=== PATIENT | female | born 1970 | race Caucasian/White ===

== ENCOUNTER 2018-09-07 16:26 | Emergency (ER) | payer MEDICAID ==
[~2018-09-07] VITALS: Ht 162.6 cm; Wt 64.9 kg
[~2018-09-07 16:26] MED LIST: ALBU2.5V38 IH; ALBU8HFA4 INH; DIPH25CA83 PO
--- NOTE | 2018-09-07 16:37 | NUR ---
DR Sandoval at the bedside for MSE.
[2018-09-07 16:55] VITALS: BP 143/70
--- NOTE | 2018-09-07 16:55 | NUR ---
Patient discharged to home in stable conditon. Written and verbal after care instructions given. Patient verbalizes understanding of instructions.
== END 2018-09-07 16:56 | disposition home or self-care (01) ==
LOC: ER 16:28
DX: M54.42 Lumbago with sciatica, left side (principal); R42 Dizziness and giddiness; R20.2 Paresthesia of skin; J45.909 Unspecified asthma, uncomplicated; Z88.1 Allergy status to other antibiotic agents; Z79.899 Other long term (current) drug therapy
CPT/HCPCS: A4663

== ENCOUNTER 2018-10-14 20:26 | Emergency (ER) | payer MEDICAID ==
[~2018-10-14] VITALS: Ht 162.6 cm; Wt 68.0 kg
[2018-10-14] MEDS ORDERED: FAMOTIDINE 20 MG TABLET (20:41)
[2018-10-14] MEDS ORDERED: ACET-2605 PO (20:42)
--- NOTE | 2018-10-14 20:55 | NUR ---
Dr. Gracia at bedside for MSE.
[2018-10-14] MEDS ORDERED: ONDANSETRON IV *ER 4 MG/2 ML VIAL IV ONE (21:00)
[2018-10-14] MEDS ORDERED: HYDROCODONE/APAP 10-325 MG TABLET PO ONE (21:00)
[2018-10-14] MEDS ORDERED: ASPIRIN 81 MG TAB.CHEW PO ONE (21:00)
[2018-10-14] MEDS ORDERED: NITROGLYCERIN OINT 1 GM PACKET TP ONE ×2 (21:00→21:21)
[2018-10-14] MEDS ORDERED: LORAZEPAM 0.5 MG TABLET PO ONE (21:00)
[2018-10-14 21:18] LABS: BASOPHILS # (AUTO) 0.2 K/uL (0.0-8.0); BASOPHILS % (AUTO) 1.2 % (0.0-2.0); EOSINOPHILS % (AUTO) 0.3 % (0.0-7.0); HEMATOCRIT 38.1 % (31.2-41.9); HEMOGLOBIN 12.9 g/dL (10.9-14.3); LYMPHOCYTES # (AUTO) 2.4 K/uL (20.0-40.0); LYMPHOCYTES % (AUTO) 17.1 % (20.5-51.5); MEAN CORPUSCULAR HEMOGLOBIN 32.5 uug (24.7-32.8); MEAN CORPUSCULAR HGB CONC 34 g/dL (32.3-35.6); MEAN CORPUSCULAR VOLUME 95.9 fL (75.5-95.3); MONOCYTES # (AUTO) 0.8 K/uL (2.0-10.0); MONOCYTES % (AUTO) 5.3 % (0.0-11.0); NEUTROPHILS # (AUTO) 10.9 K/uL (1.8-8.9); NEUTROPHILS % (AUTO) 76.1 % (38.5-71.5); PLATELET COUNT (AUTO) 450 K/uL (179-408); RED BLOOD CELL COUNT(AUTO) 3.97 MIL/uL (3.63-4.92); WHITE BLOOD COUNT (AUTO) 14.4 K/uL (3.8-11.8)
[2018-10-14] MEDS ORDERED: ONDANSETRON 4 MG/2 ML VIAL ONE (21:19)
[2018-10-14] MEDS ORDERED: ASPIRIN 81 MG TAB.CHEW ONE (21:20)
[2018-10-14] MEDS ORDERED: LORAZEPAM 0.5 MG TABLET ONE (21:20)
[2018-10-14] MEDS ORDERED: HYDROCODONE/APAP 10-325 MG TABLET ONE (21:21)
[2018-10-14 21:25] LABS: CREATININE 0.9 mg/dL (0.6-1.3); POTASSIUM 3.8 mmol/L (3.5-5.1)
--- NOTE | 2018-10-14 21:33 | NUR ---
Ultrasound at bedside.
[2018-10-14 21:37] LABS: BAND % (MANUAL) 6 % (0-10); LYMPHOCYTES % (MANUAL) 17 % (20-40); MONOCYTES % (MANUAL) 4 % (2-10); NEUTROPHILS % (MANUAL) 73 % (42-75)
[2018-10-14 21:38] LABS: BILIRUBIN,DIRECT 0.1 mg/dL (0.0-0.2); BILIRUBIN,TOTAL 0.2 mg/dL (0.2-1.0); TOTAL PROTEIN, SERUM 7.7 g/dL (6.4-8.2)
[2018-10-14] MEDS ORDERED: SWABABLE VALVE TRANSFER SET EA MC ONE (21:46)
[2018-10-14] MEDS ORDERED: NORMAL SALINE FLUSH 10 ML DISP.SYRIN ONE (21:46)
[2018-10-14] MEDS ORDERED: IV NORMAL SALINE 250 ML IV ONE (21:46)
[2018-10-14] MEDS ORDERED: IOHEXOL 350 100 ML INFUS..BTL ONE (21:46)
--- NOTE | 2018-10-14 22:50 | NUR ---
Patient out of ER for CTA.
--- NOTE | 2018-10-14 23:15 | NUR ---
Pt back to ER from CT.
[2018-10-15] MEDS ORDERED: DEXAMETHASONE SOD PHOSPHATE 10 MG INJ ONE (00:57)
[2018-10-15] MEDS ORDERED: DEXAMETHASONE SOD PHOSPHATE 4 MG INJ IM ONE (01:00)
--- NOTE | 2018-10-15 01:02 | NUR ---
Patient discharged to home in stable conditon. Written and verbal after care instructions given. Patient verbalizes understanding of instructions. Patient ambulated out of ER with steady gait, no acute signs of distress, VSS, all belongings taken, IV site discontinued, patient provided with copies of labs and diagnostic procedures.
[2018-10-15 01:05] VITALS: BP 138/80
== END 2018-10-15 01:05 | disposition home or self-care (01) ==
LOC: ER 20:29
DX: R06.02 Shortness of breath (principal); R00.2 Palpitations; M79.661 Pain in right lower leg; J45.909 Unspecified asthma, uncomplicated; K21.9 Gastro-esophageal reflux disease without esophagitis; Z88.1 Allergy status to other antibiotic agents; Z79.899 Other long term (current) drug therapy
CPT/HCPCS: 36415 ×2; 71275; 80048; 80076; 83880; 84484 ×2; 85025; 85730; 93005; 93971; 96372; 96374; 99284; J1100; J2405; Q9967; 70030-TC; A4663; J3490; J7050

== ENCOUNTER 2018-12-13 07:52 | Emergency (ER) | payer BC, MEDICAID ==
[~2018-12-13] VITALS: Ht 160 cm; Wt 90.7 kg
[~2018-12-13 07:52] MED LIST changes: +ACET-2605 PO; +FAMOTIDINE 20 MG TABLET
--- NOTE | 2018-12-13 08:06 | NUR ---
patient was seen my . ELKIN, and follow up instructions given and explained to patient who states she understands all instructions.
[2018-12-13 08:09] VITALS: BP 148/89
== END 2018-12-13 08:09 | disposition home or self-care (01) ==
LOC: ER 07:52
DX: S46.222A Laceration of muscle, fascia and tendon of other parts of biceps, left arm, initial encounter (principal); J45.909 Unspecified asthma, uncomplicated; K21.9 Gastro-esophageal reflux disease without esophagitis; Z88.1 Allergy status to other antibiotic agents; Z79.899 Other long term (current) drug therapy; W19.XXXA Unspecified fall, initial encounter; Y93.89 Activity, other specified; Y92.89 Other specified places as the place of occurrence of the external cause; Y99.8 Other external cause status
CPT/HCPCS: A4663

== ENCOUNTER 2018-12-21 20:44 | Emergency (ER) | payer BC, MEDICAID ==
[~2018-12-21] VITALS: Ht 162.6 cm; Wt 63.5 kg
[2018-12-21] MEDS ORDERED: PREDNISONE 10 MG TABLET (20:56)
[2018-12-21] MEDS ORDERED: IBUP200C5 PO (20:57)
[2018-12-21] MEDS ORDERED: ASPI81TA31 PO (20:57)
--- NOTE | 2018-12-21 21:22 | NUR ---
dPatient discharged to home in stable conditon. Written and verbal after care instructions given. Patient verbalizes understanding of instructions. Ambulated from ER with stable gait. All belongings with patient.
[2018-12-21 21:23] VITALS: BP 141/87
== END 2018-12-21 21:25 | disposition home or self-care (01) ==
LOC: ER 20:44
DX: S51.012D Laceration without foreign body of left elbow, subsequent encounter (principal); J45.909 Unspecified asthma, uncomplicated; K21.9 Gastro-esophageal reflux disease without esophagitis; Z88.1 Allergy status to other antibiotic agents; Z79.82 Long term (current) use of aspirin; Z79.1 Long term (current) use of non-steroidal anti-inflammatories (NSAID); Z79.899 Other long term (current) drug therapy; X58.XXXD Exposure to other specified factors, subsequent encounter
CPT/HCPCS: A4663

== ENCOUNTER 2018-12-25 21:25 | Emergency (ER) | payer MEDICAID, BC ==
[~2018-12-25] VITALS: Ht 162.6 cm; Wt 63.5 kg
[~2018-12-25 21:25] MED LIST changes: +ASPI81TA31 PO; -FAMOTIDINE 20 MG TABLET; +IBUP200C5 PO; +PREDNISONE 10 MG TABLET
[2018-12-25] MEDS ORDERED: LIDOCAINE HCL 2% 20 ML VIAL TP ONE (22:15)
--- NOTE | 2018-12-25 22:22 | NUR ---
Patient discharged to home in stable conditon. Written and verbal after care instructions given. Patient verbalizes understanding of instructions.
== END 2018-12-25 22:22 | disposition home or self-care (01) ==
LOC: ER 21:26
DX: S51.012A Laceration without foreign body of left elbow, initial encounter (principal); J45.909 Unspecified asthma, uncomplicated; Z88.1 Allergy status to other antibiotic agents; Z79.82 Long term (current) use of aspirin; Z79.1 Long term (current) use of non-steroidal anti-inflammatories (NSAID); Z79.899 Other long term (current) drug therapy; X58.XXXA Exposure to other specified factors, initial encounter; Y93.89 Activity, other specified; Y92.89 Other specified places as the place of occurrence of the external cause; Y99.8 Other external cause status
CPT/HCPCS: A4663

== ENCOUNTER 2019-01-08 14:35 | Emergency (ER) | payer MEDICAID, OTHER ==
[~2019-01-08] VITALS: Ht 162.6 cm; Wt 68.0 kg
--- NOTE | 2019-01-08 15:34 | NUR ---
Patient discharged to home in stable conditon. Written and verbal after care instructions given. Patient verbalizes understanding of instructions.pt walks in steady gait.
== END 2019-01-08 15:41 | disposition home or self-care (01) ==
LOC: ER 14:35
DX: S41.112D Laceration without foreign body of left upper arm, subsequent encounter (principal); M54.5 Low back pain; J45.909 Unspecified asthma, uncomplicated; Z88.1 Allergy status to other antibiotic agents; Z79.82 Long term (current) use of aspirin; Z79.1 Long term (current) use of non-steroidal anti-inflammatories (NSAID); Z79.899 Other long term (current) drug therapy; X58.XXXD Exposure to other specified factors, subsequent encounter
CPT/HCPCS: A4663

== ENCOUNTER 2019-02-16 19:51 | Emergency (ER) | payer BC, OTHER ==
[~2019-02-16] VITALS: Ht 162.6 cm; Wt 70.3 kg
--- NOTE | 2019-02-16 20:10 | NUR ---
Patient ambulated with stable gait. Speech clear, speaks in complete sentences. A/Ox4. No neuro deficits. Patient came for nasal congestion worsening x3 days. Respiratory even and unlabored, no cough no sob. No cardiovascular distress, all pulses palpable. No Gi/ distress noted.
--- NOTE | 2019-02-16 20:30 | NUR ---
Patient discharged to home in stable conditon. Written and verbal after care instructions given. Patient verbalizes understanding of instructions. Patient ambulated with stable gait.
[2019-02-16 20:31] VITALS: BP 145/95
== END 2019-02-16 20:32 | disposition home or self-care (01) ==
LOC: ER 19:51
DX: J32.9 Chronic sinusitis, unspecified (principal); J45.909 Unspecified asthma, uncomplicated; I10 Essential (primary) hypertension; Z88.1 Allergy status to other antibiotic agents; Z79.82 Long term (current) use of aspirin; Z79.1 Long term (current) use of non-steroidal anti-inflammatories (NSAID); Z79.899 Other long term (current) drug therapy
CPT/HCPCS: A4663

== ENCOUNTER 2019-04-16 14:47 | Emergency (ER) | payer BC, OTHER ==
[~2019-04-16] VITALS: Ht 162.6 cm; Wt 70.3 kg
[~2019-04-16 14:47] MED LIST changes: -ALBU2.5V38 IH; -ALBU8HFA4 INH
--- NOTE | 2019-04-16 14:55 | NUR ---
Physician at bedside.
--- NOTE | 2019-04-16 15:04 | NUR ---
Patient given discharge instructions. Patient being discharged at this time.
[2019-04-16 15:05] VITALS: BP 158/99
== END 2019-04-16 15:05 | disposition home or self-care (01) ==
LOC: ER 14:53
DX: S51.012D Laceration without foreign body of left elbow, subsequent encounter (principal); M79.5 Residual foreign body in soft tissue; J45.909 Unspecified asthma, uncomplicated; Z88.1 Allergy status to other antibiotic agents; Z79.82 Long term (current) use of aspirin; Z79.1 Long term (current) use of non-steroidal anti-inflammatories (NSAID); Z79.899 Other long term (current) drug therapy; X58.XXXD Exposure to other specified factors, subsequent encounter
CPT/HCPCS: A4663

== ENCOUNTER 2019-06-08 01:15 | Emergency (ER) | payer BC, MEDICAID, OTHER ==
[~2019-06-08] VITALS: Ht 165.1 cm; Wt 68.0 kg
[2019-06-08] MEDS ORDERED: ONDANSETRON 4 MG/2 ML VIAL IV ONE (01:30)
[2019-06-08] MEDS ORDERED: IV NORMAL SALINE 1000 ML BAG IV ONE ×2 (01:30→02:15)
[2019-06-08] MEDS ORDERED: ONDANSETRON 4 MG/2 ML VIAL ONE (01:35)
--- NOTE | 2019-06-08 01:39 | NUR ---
Patient states she took 20 tabs of Tylenol 8 hours [employer]MS EXAMIN[employer]. She states she took the same about a feel ago as well. She denies SI/HI/AH/VH. Patient states she took this for pain management due to chronic back pain.
[2019-06-08 01:57] LABS: BASOPHILS % (AUTO) 0.3 % (0.0-2.0); EOSINOPHILS # (AUTO) 0.1 K/uL (0.0-0.7); EOSINOPHILS % (AUTO) 0.7 % (0.0-7.0); HEMATOCRIT 40.1 % (31.2-41.9); HEMOGLOBIN 13.2 g/dL (10.9-14.3); LYMPHOCYTES # (AUTO) 3.1 K/uL (20.0-40.0); LYMPHOCYTES % (AUTO) 28.4 % (20.5-51.5); MEAN CORPUSCULAR HEMOGLOBIN 30.7 uug (24.7-32.8); MEAN CORPUSCULAR HGB CONC 33 g/dL (32.3-35.6); MEAN CORPUSCULAR VOLUME 93.3 fL (75.5-95.3); MONOCYTES # (AUTO) 0.7 K/uL (2.0-10.0); MONOCYTES % (AUTO) 6.7 % (0.0-11.0); NEUTROPHILS # (AUTO) 6.9 K/uL (1.8-8.9); NEUTROPHILS % (AUTO) 63.9 % (38.5-71.5); PLATELET COUNT (AUTO) 413 K/uL (179-408); WHITE BLOOD COUNT (AUTO) 10.8 K/uL (3.8-11.8)
[2019-06-08 02:00] LABS: ACETAMINOPHEN 50.6 ug/mL (10-30); ALANINE AMINOTRANSFERASE 53 U/L (14-59); ALKALINE PHOSPHATASE 113 U/L (50-136); ASPARTATE AMINOTRANSFERASE 32 U/L (15-37); BILIRUBIN,DIRECT 0.1 mg/dL (0.0-0.2); BILIRUBIN,TOTAL 0.2 mg/dL (0.2-1.0); CARBON DIOXIDE 23 mmol/L (21-32); CHLORIDE 96 mmol/L (98-107); CREATININE 0.8 mg/dL (0.6-1.3); GLUCOSE 123 mg/dL (74-106); TOTAL PROTEIN, SERUM 7.2 g/dL (6.4-8.2); UREA NITROGEN, BLOOD 12 mg/dL (7-18)
[2019-06-08 02:06] LABS: POTASSIUM 2.8 mmol/L (3.5-5.1)
[2019-06-08] MEDS ORDERED: POTASSIUM CHLORIDE 20 MEQ TAB.PRT.SR PO ONE (02:15)
[2019-06-08] MEDS ORDERED: POTASSIUM CHLORIDE 20 MEQ TAB.PRT.SR ONE (02:15)
[2019-06-08] MEDS ORDERED: LORAZEPAM 2 MG/1 ML VIAL ONE (02:20)
[2019-06-08] MEDS ORDERED: LORAZEPAM 2 MG/1 ML VIAL IV ONE (02:30)
[2019-06-08 02:35] LABS: ETHANOL < 3 MG/DL (0-0)
--- NOTE | 2019-06-08 03:16 | NUR ---
Direct observation ongoin. Patient in bed, no acute distress noted. VSS
--- NOTE | 2019-06-08 04:23 | NUR ---
Patient in bed, no acute distress noted VSS
[2019-06-08 05:41] LABS: POTASSIUM 3.2 mmol/L (3.5-5.1)
[2019-06-08 05:42] LABS: BILIRUBIN,TOTAL 0.2 mg/dL (0.1-1.0); CREATININE 0.8 mg/dL (0.6-1.3)
[2019-06-08 05:43] LABS: ACETAMINOPHEN 8.8 ug/mL (10-30); TOTAL PROTEIN, SERUM 6.5 g/dL (6.4-8.2)
--- NOTE | 2019-06-08 05:53 | NUR ---
Patient discharged to home in stable conditon. Written and verbal after care instructions given. Patient verbalizes understanding of instructions. Ambulated from ER with stable gait. All belongings with patient. patient to be driven home by in private vehicle. Peripheral IV removed prior to d/c.
[2019-06-08 05:54] VITALS: BP 128/80
== END 2019-06-08 05:55 | disposition home or self-care (01) ==
LOC: ER 01:18
DX: T39.1X1A Poisoning by 4-Aminophenol derivatives, accidental (unintentional), initial encounter (principal); E87.6 Hypokalemia; J45.909 Unspecified asthma, uncomplicated; Z88.1 Allergy status to other antibiotic agents; Z79.82 Long term (current) use of aspirin; Z79.1 Long term (current) use of non-steroidal anti-inflammatories (NSAID); Z79.899 Other long term (current) drug therapy; Y92.89 Other specified places as the place of occurrence of the external cause
CPT/HCPCS: 36415; 80048; 80053; 80076; 83690; 85025; 96361; 96374; 96375; 99283; G0480 ×3; G0481; J2060; J2405; A4663; J7030

== ENCOUNTER 2019-07-29 16:57 | Emergency (ER) | payer MEDICAID, OTHER ==
[~2019-07-29] VITALS: Ht 162.6 cm; Wt 63.5 kg
[~2019-07-29 16:57] MED LIST changes: -PREDNISONE 10 MG TABLET; +PREDNISONE 10 MG TABLET PO
[2019-07-29] MEDS ORDERED: ALPR0.5T PO (17:19)
[2019-07-29] MEDS ORDERED: PANTOPRAZOLE SODIUM 40 MG TABLET.DR PO ONE ×2 (17:45)
[2019-07-29] MEDS ORDERED: ONDANSETRON ODT 4 MG TAB.RAPDIS SL ONE (17:45)
[2019-07-29] MEDS ORDERED: ONDANSETRON ODT 4 MG TAB.RAPDIS ONE (17:46)
--- NOTE | 2019-07-29 18:16 | NUR ---
PT WAS EVALUATED BY DR EL. PT WAS D/C'd TO HOME. D/C INSTRUCTIONS GIVEN TO THE PT.
[2019-07-29 18:18] VITALS: BP 135/71
== END 2019-07-29 18:19 | disposition home or self-care (01) ==
LOC: ER 17:11
DX: K29.60 Other gastritis without bleeding (principal); J45.909 Unspecified asthma, uncomplicated; Z88.1 Allergy status to other antibiotic agents; Z79.82 Long term (current) use of aspirin; Z79.899 Other long term (current) drug therapy
CPT/HCPCS: 74018; A4663; Q0162

== ENCOUNTER 2019-08-29 11:17 | Emergency (ER) | payer OTHER ==
[~2019-08-29] VITALS: Ht 162.6 cm; Wt 68.0 kg
[~2019-08-29 11:17] MED LIST changes: -ACET-2605 PO; +ALPR0.5T PO; -ASPI81TA31 PO
--- NOTE | 2019-08-29 11:24 | NUR ---
Dr Lemons at the bedside for MSE.
[2019-08-29] MEDS ORDERED: METOCLOPRAMIDE HCL 10 MG/2 ML VIAL ONE (11:39)
[2019-08-29] MEDS ORDERED: KETOROLAC TROMETHAMINE 15 MG INJ ONE (11:39)
[2019-08-29] MEDS ORDERED: IPRATROPIUM BROMIDE 0.5 MG/2.5 ML NEBU ONE (11:41)
[2019-08-29] MEDS ORDERED: ALBUTEROL SULFATE 2.5 MG/3 ML NEBU ONE (11:41)
[2019-08-29] MEDS ORDERED: METOCLOPRAMIDE HCL 10 MG/2 ML VIAL IM ONE (11:45)
[2019-08-29] MEDS ORDERED: KETOROLAC TROMETHAMINE 15 MG INJ IM ONE (11:45)
[2019-08-29] MEDS ORDERED: ALBUTEROL SULFATE 2.5 MG/3 ML NEBU NEB ONE (11:45)
[2019-08-29] MEDS ORDERED: IPRATROPIUM BROMIDE 0.5 MG/2.5 ML NEBU NEB ONE (11:45)
[2019-08-29 12:30] VITALS: BP 139/74
--- NOTE | 2019-08-29 12:31 | NUR ---
Patient discharged to home in stable conditon. Written and verbal after care instructions given. Patient verbalizes understanding of instructions.
== END 2019-08-29 12:31 | disposition home or self-care (01) ==
LOC: ER 11:17
DX: G43.909 Migraine, unspecified, not intractable, without status migrainosus (principal); J45.901 Unspecified asthma with (acute) exacerbation; Z88.1 Allergy status to other antibiotic agents; Z79.1 Long term (current) use of non-steroidal anti-inflammatories (NSAID); Z79.899 Other long term (current) drug therapy
CPT/HCPCS: 71045; 93005; 94640; 96372 ×2; 99283; J1885; J2765; A4663; J3590

== ENCOUNTER 2019-08-31 10:16 | Emergency (ER) | payer OTHER ==
[~2019-08-31] VITALS: Ht 162.6 cm; Wt 63.5 kg
[2019-08-31] MEDS ORDERED: ALBUTEROL SULFATE 2.5 MG/3 ML NEBU NEB ONE (10:30)
[2019-08-31] MEDS ORDERED: BENZONATATE 100 MG CAPSULE PO ONE (10:30)
[2019-08-31] MEDS ORDERED: BENZONATATE 100 MG CAPSULE ONE (10:35)
[2019-08-31] MEDS ORDERED: ALBUTEROL SULFATE 2.5 MG/3 ML NEBU ONE (10:38)
--- NOTE | 2019-08-31 11:05 | NUR ---
Pt states feeling better after breathing tx. No c/o chest wall pain.
[2019-08-31 11:18] VITALS: BP 133/69
--- NOTE | 2019-08-31 11:19 | NUR ---
Patient discharged to home in stable conditon. Written and verbal after care instructions given. Patient verbalizes understanding of instructions.
== END 2019-08-31 11:21 | disposition home or self-care (01) ==
LOC: ER 10:16
DX: J18.9 Pneumonia, unspecified organism (principal); J45.909 Unspecified asthma, uncomplicated; Z88.1 Allergy status to other antibiotic agents; Z79.1 Long term (current) use of non-steroidal anti-inflammatories (NSAID); Z79.899 Other long term (current) drug therapy
CPT/HCPCS: 71045; A4663

== ENCOUNTER 2019-09-03 13:55 | Emergency (ER) | payer OTHER ==
[~2019-09-03] VITALS: Ht 162.6 cm; Wt 63.5 kg
[2019-09-03] MEDS ORDERED: GUAIFENESIN/CODEINE 5 ML LIQUID UDC PO ONE (14:15)
[2019-09-03] MEDS ORDERED: GUAIFENESIN/CODEINE 5 ML LIQUID UDC ONE (14:22)
[2019-09-03 14:29] LABS: BASOPHILS # (AUTO) 0.1 K/uL (0.0-8.0); BASOPHILS % (AUTO) 0.6 % (0.0-2.0); EOSINOPHILS % (AUTO) 0.4 % (0.0-7.0); HEMATOCRIT 36.1 % (31.2-41.9); HEMOGLOBIN 11.9 g/dL (10.9-14.3); LYMPHOCYTES # (AUTO) 0.9 K/uL (20.0-40.0); LYMPHOCYTES % (AUTO) 10.7 % (20.5-51.5); MEAN CORPUSCULAR HEMOGLOBIN 28.9 uug (24.7-32.8); MEAN CORPUSCULAR HGB CONC 33 g/dL (32.3-35.6); MEAN CORPUSCULAR VOLUME 87.7 fL (75.5-95.3); MONOCYTES # (AUTO) 0.4 K/uL (2.0-10.0); MONOCYTES % (AUTO) 4.8 % (0.0-11.0); NEUTROPHILS # (AUTO) 6.9 K/uL (1.8-8.9); NEUTROPHILS % (AUTO) 83.5 % (38.5-71.5); PLATELET COUNT (AUTO) 603 K/uL (179-408); RED BLOOD CELL COUNT(AUTO) 4.11 MIL/uL (3.63-4.92); WHITE BLOOD COUNT (AUTO) 8.3 K/uL (3.8-11.8)
[2019-09-03] MEDS ORDERED: ALBUTEROL SULFATE 2.5 MG/3 ML NEBU NEB ONE (14:30)
[2019-09-03] MEDS ORDERED: ALBUTEROL SULFATE 2.5 MG/3 ML NEBU ONE (14:31)
[2019-09-03 14:44] LABS: BILIRUBIN,TOTAL 0.2 mg/dL (0.2-1.0); POTASSIUM 3.7 mmol/L (3.5-5.1); TOTAL PROTEIN, SERUM 7.7 g/dL (6.4-8.2)
[2019-09-03 14:47] LABS: CREATININE 0.8 mg/dL (0.6-1.3)
[2019-09-03] MEDS ORDERED: LEVO750T21 PO (15:15)
--- NOTE | 2019-09-03 15:30 | NUR ---
Patient discharged to home in stable conditon. Written and verbal after care instructions given. Patient verbalizes understanding of instructions.
== END 2019-09-03 15:44 | disposition home or self-care (01) ==
LOC: ER 13:55
DX: J45.909 Unspecified asthma, uncomplicated (principal); F41.8 Other specified anxiety disorders; G47.00 Insomnia, unspecified; Z88.1 Allergy status to other antibiotic agents; Z79.1 Long term (current) use of non-steroidal anti-inflammatories (NSAID); Z79.2 Long term (current) use of antibiotics; Z79.899 Other long term (current) drug therapy
CPT/HCPCS: 36415; 71045; 85025; A4663

== ENCOUNTER 2019-09-06 22:38 | Emergency (ER) | payer OTHER ==
[~2019-09-06] VITALS: Ht 162.6 cm; Wt 63.5 kg
[~2019-09-06 22:38] MED LIST changes: +LEVO750T21 PO
[2019-09-06] MEDS ORDERED: AZITHROMYCIN 250 MG TABLET PO ONE (23:00)
[2019-09-06] MEDS ORDERED: AZITHROMYCIN 250 MG TABLET ONE (23:06)
--- NOTE | 2019-09-06 23:09 | NUR ---
PT ABLE TO TOLERATE PO MEDS BP AT 145/89MMHG O2SAT AT 97% CURRENTLY DENIES PAIN Patient discharged to home in stable conditon. Written and verbal after care instructions given. Patient verbalizes understanding of instructions. AMBULATORY W/ STABLE GAIT ALL BELONGINGS W/ PT
[2019-09-06 23:11] VITALS: BP 145/89
== END 2019-09-06 23:12 | disposition home or self-care (01) ==
LOC: ER 22:41
DX: J18.9 Pneumonia, unspecified organism (principal); J45.909 Unspecified asthma, uncomplicated; Z88.1 Allergy status to other antibiotic agents; Z79.1 Long term (current) use of non-steroidal anti-inflammatories (NSAID); Z79.899 Other long term (current) drug therapy; Z79.2 Long term (current) use of antibiotics
CPT/HCPCS: A4663; Q0144

== ENCOUNTER 2019-09-10 20:41 | Emergency (ER) | payer OTHER ==
[~2019-09-10] VITALS: Ht 162.6 cm; Wt 63.5 kg
--- NOTE | 2019-09-10 20:55 | NUR ---
PATIENT ARRIVED AT THE ER WITH C/O COUGH/CP WITH BREATHING/LEFT RIB PAIN X 2 WKS. PATIENT AAOX4. NO CARDIOVASCULAR CONCERN. NO /GI CONCERN.
--- NOTE | 2019-09-10 21:02 | NUR ---
Dr. Webster on bedside for MSE.
--- NOTE | 2019-09-10 21:07 | NUR ---
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
--- NOTE | 2019-09-10 21:39 | NUR ---
Dr. Webster on bedside for MSE.
[2019-09-10 22:36] VITALS: BP 140/90
--- NOTE | 2019-09-10 22:37 | NUR ---
Patient discharged to home in stable conditon. Written and verbal after care instructions given. Patient verbalizes understanding of instructions. Patient ambulated out of the ER with steady gait. All belongings with patient.
== END 2019-09-10 22:38 | disposition home or self-care (01) ==
LOC: ER 20:42
DX: S29.011A Strain of muscle and tendon of front wall of thorax, initial encounter (principal); J45.909 Unspecified asthma, uncomplicated; Z88.1 Allergy status to other antibiotic agents; Z79.899 Other long term (current) drug therapy; Z79.1 Long term (current) use of non-steroidal anti-inflammatories (NSAID); Z79.2 Long term (current) use of antibiotics; X58.XXXA Exposure to other specified factors, initial encounter; Y93.89 Activity, other specified; Y92.89 Other specified places as the place of occurrence of the external cause; Y99.8 Other external cause status
CPT/HCPCS: 71101; A4663

== ENCOUNTER 2019-09-28 19:10 | Emergency (ER) | payer OTHER ==
[~2019-09-28] VITALS: Ht 162.6 cm; Wt 63.5 kg
--- NOTE | 2019-09-28 19:54 | NUR ---
Dr. Ospina at bedside for MSE.
[2019-09-28 20:25] LABS: BASOPHILS # (AUTO) 0.2 K/uL (0.0-8.0); BASOPHILS % (AUTO) 1.2 % (0.0-2.0); EOSINOPHILS # (AUTO) 0.2 K/uL (0.0-0.7); EOSINOPHILS % (AUTO) 1.3 % (0.0-7.0); HEMATOCRIT 37.2 % (31.2-41.9); HEMOGLOBIN 12.2 g/dL (10.9-14.3); LYMPHOCYTES # (AUTO) 3.1 K/uL (20.0-40.0); LYMPHOCYTES % (AUTO) 23.9 % (20.5-51.5); MEAN CORPUSCULAR HEMOGLOBIN 29.5 uug (24.7-32.8); MEAN CORPUSCULAR HGB CONC 33 g/dL (32.3-35.6); MEAN CORPUSCULAR VOLUME 89.9 fL (75.5-95.3); NEUTROPHILS # (AUTO) 8.5 K/uL (1.8-8.9); NEUTROPHILS % (AUTO) 65.6 % (38.5-71.5); PLATELET COUNT (AUTO) 352 K/uL (179-408); RED BLOOD CELL COUNT(AUTO) 4.14 MIL/uL (3.63-4.92); WHITE BLOOD COUNT (AUTO) 12.9 K/uL (3.8-11.8)
[2019-09-28 20:32] LABS: CREATININE 0.9 mg/dL (0.6-1.3); POTASSIUM 4.2 mmol/L (3.5-5.1)
[2019-09-28] MEDS ORDERED: SWABABLE VALVE TRANSFER SET EA MC ONE (21:17)
[2019-09-28] MEDS ORDERED: IV NORMAL SALINE 250 ML IV ONE (21:17)
[2019-09-28] MEDS ORDERED: IOHEXOL 350 100 ML INFUS..BTL ONE (21:17)
--- NOTE | 2019-09-28 21:50 | NUR ---
Pt out of ER for CT.
--- NOTE | 2019-09-28 22:07 | NUR ---
Pt back to ER from CT.
--- NOTE | 2019-09-28 23:05 | NUR ---
Pt's blood pressure high 180/103, made aware.
[2019-09-28] MEDS ORDERED: CLONIDINE HCL 0.1 MG TABLET ONE (23:07)
[2019-09-28] MEDS ORDERED: CLONIDINE HCL 0.1 MG TABLET PO ONE (23:15)
--- NOTE | 2019-09-28 23:34 | NUR ---
Patient discharged to home in stable conditon. Written and verbal after care instructions given. Patient verbalizes understanding of instructions. Pt ambulated out of ER with steady gait, VSS, no acute signs of distress, all belongings taken, IV site discontinued.
[2019-09-28 23:35] VITALS: BP 170/119
== END 2019-09-28 23:36 | disposition home or self-care (01) ==
LOC: ER 19:14
DX: S42.102A Fracture of unspecified part of scapula, left shoulder, initial encounter for closed fracture (principal); S22.32XA Fracture of one rib, left side, initial encounter for closed fracture; J20.9 Acute bronchitis, unspecified; R07.89 Other chest pain; J45.909 Unspecified asthma, uncomplicated; Z88.1 Allergy status to other antibiotic agents; Z79.899 Other long term (current) drug therapy; X58.XXXA Exposure to other specified factors, initial encounter; Y93.89 Activity, other specified; Y92.89 Other specified places as the place of occurrence of the external cause; Y99.8 Other external cause status
CPT/HCPCS: 36415; 71275; 80048; 84484; 85025; 85379; 93005; 99285; Q9967; 70030-TC; A4663; J7030; J7050

== ENCOUNTER 2020-05-02 22:11 | Emergency (ER) | payer SELFPAY ==
[~2020-05-02 22:11] MED LIST changes: -ALPR0.5T PO; -LEVO750T21 PO; -PREDNISONE 10 MG TABLET PO
== END 2020-05-02 22:30 | disposition left against medical advice (07) ==
LOC: ER 22:14
DX: Z75.3 Unavailability and inaccessibility of health-care facilities (principal)

== ENCOUNTER 2020-05-07 14:19 | Emergency (ER) | payer OTHER ==
[~2020-05-07] VITALS: Ht 162.6 cm; Wt 68.0 kg
[2020-05-07 15:13] LABS: BASOPHILS # (AUTO) 0.1 K/uL (0.0-8.0); BASOPHILS % (AUTO) 1.2 % (0.0-2.0); EOSINOPHILS # (AUTO) 0.4 K/uL (0.0-0.7); EOSINOPHILS % (AUTO) 5.3 % (0.0-7.0); HEMATOCRIT 38.1 % (31.2-41.9); HEMOGLOBIN 12.7 g/dL (10.9-14.3); LYMPHOCYTES # (AUTO) 2.1 K/uL (20.0-40.0); LYMPHOCYTES % (AUTO) 27.2 % (20.5-51.5); MEAN CORPUSCULAR HEMOGLOBIN 28.8 uug (24.7-32.8); MEAN CORPUSCULAR HGB CONC 33 g/dL (32.3-35.6); MEAN CORPUSCULAR VOLUME 86.2 fL (75.5-95.3); MONOCYTES # (AUTO) 0.5 K/uL (2.0-10.0); MONOCYTES % (AUTO) 6.5 % (0.0-11.0); NEUTROPHILS # (AUTO) 4.6 K/uL (1.8-8.9); NEUTROPHILS % (AUTO) 59.8 % (38.5-71.5); PLATELET COUNT (AUTO) 446 K/uL (179-408); RED BLOOD CELL COUNT(AUTO) 4.42 MIL/uL (3.63-4.92); WHITE BLOOD COUNT (AUTO) 7.8 K/uL (3.8-11.8)
[2020-05-07 15:18] LABS: CREATININE 0.8 mg/dL (0.6-1.3)
[2020-05-07 15:30] LABS: BILIRUBIN,DIRECT 0.1 mg/dL (0.0-0.2); BILIRUBIN,TOTAL 0.3 mg/dL (0.2-1.0); TOTAL PROTEIN, SERUM 7.6 g/dL (6.4-8.2)
--- NOTE | 2020-05-07 15:53 | NUR ---
Patient discharged to home in stable condition. Written and verbal after care instructions given. Patient verbalizes understanding of instructions. Stressed follow up or return to ER for worsening s/s.
== END 2020-05-07 15:54 | disposition home or self-care (01) ==
LOC: ER 14:19
DX: R06.00 Dyspnea, unspecified (principal); H60.93 Unspecified otitis externa, bilateral; Z87.01 Personal history of pneumonia (recurrent); Z88.0 Allergy status to penicillin; J45.909 Unspecified asthma, uncomplicated
CPT/HCPCS: 36415; 70030-TC; 71045; 85025; 93005; A4663

== ENCOUNTER 2020-11-15 21:37 | Emergency (ER) | payer OTHER ==
[~2020-11-15] VITALS: Ht 162.6 cm; Wt 70.3 kg
--- NOTE | 2020-11-15 21:54 | NUR ---
Dr Gracia at bedside for MSE.
--- NOTE | 2020-11-15 22:11 | NUR ---
Pt went to CT with tech, left in stable condition.
--- NOTE | 2020-11-15 23:05 | NUR ---
Patient discharged to home in stable condition. Written and verbal after care instructions given. Patient verbalizes understanding of instructions. Stressed follow up or return to ER for worsening s/s. Patient provided a copy of CT results, VSS, no acute signs of distress, all belongings taken, to be driven home by son via private vehicle.
[2020-11-15 23:06] VITALS: BP 132/89
== END 2020-11-15 23:06 | disposition home or self-care (01) ==
LOC: ER 21:38
DX: S00.83XA Contusion of other part of head, initial encounter (principal); W22.01XA Walked into wall, initial encounter; Y92.039 Unspecified place in apartment as the place of occurrence of the external cause; J45.909 Unspecified asthma, uncomplicated; Z87.01 Personal history of pneumonia (recurrent); R03.0 Elevated blood-pressure reading, without diagnosis of hypertension
CPT/HCPCS: 70450; A4663

== ENCOUNTER 2020-12-17 17:41 | Emergency (ER) | payer OTHER ==
[~2020-12-17] VITALS: Ht 162.6 cm; Wt 68.0 kg
--- NOTE | 2020-12-17 17:50 | NUR ---
Dr Glover at bedside for MSE.
[2020-12-17] MEDS ORDERED: HYDR-3980 PO (17:54)
[2020-12-17] MEDS: HYDROCODONE/APAP 10-325 MG TABLET PO ONE (18:02)
[2020-12-17] MEDS ORDERED: HYDROCODONE/APAP 10-325 MG TABLET ONE (18:03)
--- NOTE | 2020-12-17 18:25 | NUR ---
Patient applied with pedro luis wrap on R knee as ordered. Tolearted well. Pt cleared for DC. Written and verbal after care instructions given. Patient verbalizes understanding of instructions. Stressed follow up or return to ER for worsening s/s. Patient discharged to home in stable condition. Ambulated out of ED in steady gait,, with crutches.
[2020-12-17 18:26] VITALS: BP 140/70
== END 2020-12-17 18:10 | disposition home or self-care (01) ==
LOC: ER 17:42
DX: M25.561 Pain in right knee (principal); Z88.0 Allergy status to penicillin; M22.01 Recurrent dislocation of patella, right knee; J45.909 Unspecified asthma, uncomplicated; Z87.01 Personal history of pneumonia (recurrent)
CPT/HCPCS: A4663

== ENCOUNTER 2023-07-16 22:18 | Emergency (ER) | payer OTHER ==
[~2023-07-16] VITALS: Ht 162.6 cm; Wt 81.6 kg
[~2023-07-16 22:18] MED LIST changes: +HYDR-3980 PO
[2023-07-16 23:14] LABS: BASOPHILS # (AUTO) 0.1 K/UL (0.0-0.2); BASOPHILS % (AUTO) 1.2 % (0.0-2.0); EOSINOPHILS # (AUTO) 0.3 K/uL (0.0-0.7); EOSINOPHILS % (AUTO) 2.9 % (0.0-7.0); HEMATOCRIT 38.6 % (31.2-41.9); LYMPHOCYTES # (AUTO) 3.3 K/uL (0.8-4.8); LYMPHOCYTES % (AUTO) 30.5 % (20.5-51.5); MEAN CORPUSCULAR HEMOGLOBIN 29.9 uug (24.7-32.8); MEAN CORPUSCULAR HGB CONC 34 g/dL (32.3-35.6); MEAN CORPUSCULAR VOLUME 88.9 fL (75.5-95.3); MONOCYTES # (AUTO) 1.1 K/uL (0.1-1.30); MONOCYTES % (AUTO) 10.3 % (0.0-11.0); NEUTROPHILS % (AUTO) 55.1 % (38.5-71.5); PLATELET COUNT (AUTO) 495 K/uL (179-408); RED BLOOD CELL COUNT(AUTO) 4.34 MIL/uL (3.63-4.92); RED CELL DISTRIBUTION WIDTH 12.4 % (12.3-17.7)
[2023-07-16 23:19] LABS: DIFFERENTIAL COMMENT 1
[2023-07-16 23:37] LABS: CREATININE 0.9 mg/dL (0.6-1.3); POTASSIUM 4.1 mmol/L (3.5-5.1)
[2023-07-16 23:44] LABS: ALBUMIN 3.5 g/dL (3.4-5.0); BILIRUBIN,TOTAL 0.2 mg/dL (0.2-1.0); TOTAL PROTEIN, SERUM 8.1 g/dL (6.4-8.2)
[2023-07-17 00:32] LABS: HIV-1 p24 ANTIGEN NON REACTIVE (NONREACTIVE); HIV-1/2 ANTIBODY NON REACTIVE (NONREACTIVE)
[2023-07-17 01:05] VITALS: BP 117/88; TEMP 211.3; O2SAT 93
== END 2023-07-17 01:06 | disposition home or self-care (01) ==
LOC: ER 22:18
DX: R20.2 Paresthesia of skin (principal); R00.0 Tachycardia, unspecified; G43.909 Migraine, unspecified, not intractable, without status migrainosus; J45.909 Unspecified asthma, uncomplicated; R07.89 Other chest pain; Z79.1 Long term (current) use of non-steroidal anti-inflammatories (NSAID); Z79.899 Other long term (current) drug therapy; Z20.822 Contact with and (suspected) exposure to COVID-19
CPT/HCPCS: 36415; 71045; 83605; 85025; 87806; A4606; A4663

== ENCOUNTER 2023-12-25 20:41 | Inpatient (IN) | payer OTHER ==
[~2023-12-25] VITALS: Ht 160 cm; Wt 81.6 kg
[2023-12-25 21:08] LABS: DIFFERENTIAL COMMENT 0
[2023-12-25 21:32] LABS: *BILIRUBIN,URIN NEGATIVE (NEGATIVE); *CLARITY,URINE CLOUDY (CLEAR); *COLOR,URINE YELLOW (YELLOW); *KETONES,URINE NEGATIVE (NEGATIVE); *PROTEIN,URINE NEGATIVE (NEGATIVE); *UROBILINOGEN,URINE 0.2 E.U./dl (NORMAL); LEUKOCYTE ESTERASE ,URINE TRACE (NEGATIVE); NITRITE, URINE NEGATIVE (NEGATIVE); PH,URINE 5.5 (5.0-8.0); UGLUCOSE NEGATIVE (NEGATIVE)
[2023-12-25 21:32] LABS: BASOPHILS # (AUTO) 0.4 K/UL (0.0-0.2); BASOPHILS % (AUTO) 2.2 % (0.0-2.0); EOSINOPHILS # (AUTO) 0.2 K/uL (0.0-0.7); EOSINOPHILS % (AUTO) 1.1 % (0.0-7.0); HEMATOCRIT 40.1 % (31.2-41.9); HEMOGLOBIN 13.8 g/dL (10.9-14.3); LYMPHOCYTES % (AUTO) 12.1 % (20.5-51.5); MEAN CORPUSCULAR HGB CONC 34 g/dL (32.3-35.6); MEAN CORPUSCULAR VOLUME 87.1 fL (75.5-95.3); MONOCYTES # (AUTO) 1.7 K/uL (0.1-1.30); MONOCYTES % (AUTO) 9.8 % (0.0-11.0); NEUTROPHILS # (AUTO) 12.7 K/uL (1.8-8.9); NEUTROPHILS % (AUTO) 74.8 % (38.5-71.5); PLATELET COUNT (AUTO) 505 K/uL (179-408); RED CELL DISTRIBUTION WIDTH 12.2 % (12.3-17.7); WHITE BLOOD COUNT (AUTO) 16.9 K/uL (3.8-11.8)
[2023-12-25 21:33] LABS: *BLOOD, URINE TRACE (NEGATIVE)
[2023-12-25 21:36] LABS: CALCIUM 10.7 mg/dL (8.5-10.1); CARBON DIOXIDE 22 mmol/L (21-32); CHLORIDE 96 mmol/L (98-107); CREATININE 1.2 mg/dL (0.6-1.3); GLUCOSE 146 mg/dL (74-106); POTASSIUM 3.8 mmol/L (3.5-5.1); SODIUM SERUM 135 mmol/L (136-145); UREA NITROGEN, BLOOD 15 mg/dL (7-18)
[2023-12-25 21:41] LABS: ALANINE AMINOTRANSFERASE 46 U/L (14-59); ALBUMIN 3.8 g/dL (3.4-5.0); ALKALINE PHOSPHATASE 186 U/L (50-136); ASPARTATE AMINOTRANSFERASE 22 U/L (15-37); BILIRUBIN,DIRECT 0.1 mg/dL (0.0-0.2); BILIRUBIN,TOTAL 0.4 mg/dL (0.2-1.0); TOTAL PROTEIN, SERUM 8.8 g/dL (6.4-8.2)
[2023-12-25 21:45] LABS: *BARBITURATE, URINE NEGATIVE (NEGATIVE); *BENZODIAZEPINE, URINE POSITIVE (NEGATIVE); *CANNABINOID, URINE NEGATIVE (NEGATIVE); *OPIATE, URINE NEGATIVE (NEGATIVE); *PHENCYCLIDINE SCREEN,URINE NEGATIVE (NEGATIVE); FENTANYL, URINE NEGATIVE (NEGATIVE)
[2023-12-25 21:48] LABS: ETHANOL < 3 MG/DL (0-10)
[2023-12-25 21:54] LABS: BACTERIA,URINE MODERATE /HPF (NONE SEEN); SQUAMOUS EPITHELIAL CELL,UR MANY /HPF (NONE SEEN)
[2023-12-25 22:18] LABS: *AMPHETAMINE, URINE NEGATIVE (NEGATIVE); *COCCAINE, URINE NEGATIVE (NEGATIVE)
[2023-12-25] MEDS ORDERED: LIDOCAINE 5% PATCH TD ONE (23:14)
[2023-12-25] MEDS: LIDOCAINE 5% PATCH TD ONE (23:18)
[2023-12-25] MEDS: IV NORMAL SALINE 500 ML BAG IV ONE (23:39)
[2023-12-26] VITALS (23 sets, daily range): BP systolic 63–145; BP diastolic 37–122; TEMP 97.7–97.8; O2SAT 76–98
[2023-12-26] MEDS: IV NORMAL SALINE 500 ML BAG IV ONE (01:39)
[2023-12-26] MEDS ORDERED: ONDANSETRON 4 MG/2 ML VIAL ONE (01:42)
[2023-12-26] MEDS: ONDANSETRON 4 MG/2 ML VIAL IV ONE (01:54)
[2023-12-26] MEDS ORDERED: LORAZEPAM 1 MG TABLET ONE ×2 (03:20→11:32)
[2023-12-26] MEDS: LORAZEPAM 0.5 MG TABLET PO ONE ×2 (03:23→11:35)
[2023-12-26] MEDS ORDERED: METOCLOPRAMIDE HCL 10 MG/2 ML VIAL ONE (05:37)
[2023-12-26] MEDS ORDERED: diphenhydrAMINE 50 MG/1 ML VIAL ONE (05:37)
[2023-12-26] MEDS: diphenhydrAMINE 50 MG/1 ML VIAL IV ONE (05:43)
[2023-12-26] MEDS: METOCLOPRAMIDE HCL 10 MG/2 ML VIAL IV ONE (05:43)
[2023-12-26] MEDS: ALBUTEROL SULFATE 2.5 MG/3 ML NEBU NEB ONE (08:35)
[2023-12-26] MEDS: IPRATROPIUM BROMIDE 0.5 MG/2.5 ML NEBU NEB ONE (08:35)
[2023-12-26 08:55] LABS: CREATININE 1.5 mg/dL (0.6-1.3); POTASSIUM 4.4 mmol/L (3.5-5.1)
[2023-12-26] MEDS ORDERED: ACETAMINOPHEN 325 MG TABLET ONE (09:23)
[2023-12-26] MEDS: ACETAMINOPHEN 325 MG TABLET PO ONE (09:27)
[2023-12-26] MEDS: IV NS 1000 ML 1,000 ML IV ONE (09:49)
[2023-12-26 13:46] LABS: ACETAMINOPHEN < 10.0 ug/mL (10-30)
[2023-12-26] MEDS ORDERED: DULO30CA2 PO (13:48)
[2023-12-26] MEDS: methylPREDNISolone SOD SUCC 125 MG/2 ML VIAL IV ONE (14:44)
[2023-12-26] MEDS ORDERED: IPRATROPIUM BROMIDE 0.5 MG/2.5 ML NEBU NEB PRN (14:45)
[2023-12-26] MEDS ORDERED: LORAZEPAM 2 MG/1 ML VIAL IV PRN (15:00)
[2023-12-26] MEDS ORDERED: REMEDY ESSENTIAL ZINC PASTE 113 GM TP PRN (15:00)
[2023-12-26] MEDS ORDERED: ONDANSETRON 4 MG/2 ML VIAL IV PRN (15:00)
[2023-12-26] MEDS ORDERED: MAGNESIUM HYDROXIDE 30 ML LIQUID UDC PO PRN (15:00)
[2023-12-26] MEDS ORDERED: NOREPINEPHRINE BITARTRATE 8 MG in IV NORMAL SALINE 242 ML IV PRN ×2 (15:15→16:00)
[2023-12-26] MEDS: IPRATROPIUM BROMIDE 0.5 MG/2.5 ML NEBU NEB SCH (15:36)
[2023-12-26] MEDS: LEVALBUTEROL HCL 1.25 MG/0.5 ML NEB NEB SCH (15:37)
[2023-12-26] MEDS: PROPOFOL 100 ML IV PRN (15:42)
[2023-12-26] MEDS: MAGNESIUM SULFATE/D5W 100 ML IV SCH (16:05)
[2023-12-26] MEDS: PIPERACILLIN SODIUM/TAZOBACTAM 4.5 G in IV DEXTROSE 5% 50 ML IV SCH (16:05)
[2023-12-26] MEDS: ENOXAPARIN SODIUM 40 MG/0.4 ML DISP.SYRIN SQ SCH (16:07)
[2023-12-26] MEDS ORDERED: ALBUTEROL SULFATE 2.5 MG/3 ML NEBU NEB PRN (16:15)
[2023-12-26] MEDS ORDERED: NOREPINEPHRINE BITARTRATE 32 MG in IV NORMAL SALINE 218 ML IV PRN (16:15)
[2023-12-26] MEDS ORDERED: PHENYLEPHRINE IV 100 MG in IV NORMAL SALINE 240 ML IV PRN (16:30)
[2023-12-26] MEDS: FUROSEMIDE 40 MG/4 ML VIAL IV ONE (16:46)
[2023-12-26] MEDS: NOREPINEPHRINE BITARTRATE 32 MG in IV NORMAL SALINE 218 ML IV PRN (16:53)
[2023-12-26] MEDS: SODIUM BICARBONATE 8.4% 50 MEQ/50 ML DISP.SYRIN IV ONE ×3 (17:09→19:59)
[2023-12-26] MEDS: BUMETANIDE INJ 6 MG in IV DEXTROSE 5% 36 ML IV ONE (17:47)
[2023-12-26] MEDS: D5 IV PRN (18:20)
[2023-12-26] MEDS: SODIUM BICARBONATE IV PRN (18:20)
[2023-12-26] MEDS: NACL IV PRN (18:20)
[2023-12-26] MEDS ORDERED: LEVALBUTEROL HCL NEB 0.63 MG/3 ML NEBU NEB SCH (19:30)
[2023-12-26] MEDS: CALCIUM GLUCONATE IV 2 GM in IV NORMAL SALINE 100 ML IV ONE (19:58)
[2023-12-26] MEDS: CALCIUM GLUCONATE IV 1 GM in IV NORMAL SALINE 100 ML IV ONE (19:58)
[2023-12-26 20:20] LABS: ALBUMIN 2.4 g/dL (3.4-5.0); CALCIUM 7.4 mg/dL (8.5-10.1); CREATININE 2.4 mg/dL (0.6-1.3); MAGNESIUM 2.9 mg/dL (1.8-2.4); POTASSIUM 5.5 mmol/L (3.5-5.1); TOTAL PROTEIN, SERUM 6.7 g/dL (6.4-8.2)
[2023-12-26] MEDS ORDERED: ALBUMIN HUMAN 25% 100 ML IV PRN (21:00)
[2023-12-26 21:19] LABS: CALCIUM 7.9 mg/dL (8.5-10.1); CREATININE 2.6 mg/dL (0.6-1.3); POTASSIUM 5.8 mmol/L (3.5-5.1)
[2023-12-26] MEDS ORDERED: INSULIN REGULAR, HUMAN 300 UNIT/3 ML VIAL ONE (21:59)
[2023-12-26] MEDS: INSULIN REGULAR, HUMAN 100 UNIT in IV NORMAL SALINE 99 ML IV PRN (22:48)
[2023-12-27] VITALS (68 sets, daily range): BP systolic 77–109; BP diastolic 36–52; TEMP 97.8–99.7; O2SAT 47–81
[2023-12-27 00:29] LABS: PHOSPHOROUS 6.4 mg/dL (2.5-4.9); POTASSIUM 3.7 mmol/L (3.5-5.1)
[2023-12-27 00:31] LABS: CREATININE 1.9 mg/dL (0.6-1.3)
[2023-12-27] MEDS: POTASSIUM CHLORIDE 50 ML IV SCH (01:33)
[2023-12-27] MEDS: MAGNESIUM SULFATE/D5W 100 ML IV SCH (01:33)
[2023-12-27 04:15] LABS: BASOPHILS # (AUTO) 0.2 K/UL (0.0-0.2)
[2023-12-27 04:17] LABS: BASOPHILS % (AUTO) 0.7 % (0.0-2.0); EOSINOPHILS # (AUTO) 0.1 K/uL (0.0-0.7); EOSINOPHILS % (AUTO) 0.2 % (0.0-7.0); HEMATOCRIT 35.1 % (31.2-41.9); LYMPHOCYTES % (AUTO) 13.8 % (20.5-51.5); MEAN CORPUSCULAR HEMOGLOBIN 32.5 uug (24.7-32.8); MEAN CORPUSCULAR HGB CONC 37 g/dL (32.3-35.6); MEAN CORPUSCULAR VOLUME 88.1 fL (75.5-95.3); MONOCYTES # (AUTO) 0.7 K/uL (0.1-1.30); NEUTROPHILS # (AUTO) 30.3 K/uL (1.8-8.9); NEUTROPHILS % (AUTO) 83.3 % (38.5-71.5); PLATELET COUNT (AUTO) 406 K/uL (179-408); RED BLOOD CELL COUNT(AUTO) 3.98 MIL/uL (3.63-4.92); RED CELL DISTRIBUTION WIDTH 12.5 % (12.3-17.7)
[2023-12-27 04:33] LABS: CALCIUM 6.2 mg/dL (8.5-10.1); POTASSIUM 4.5 mmol/L (3.5-5.1)
[2023-12-27 04:36] LABS: MAGNESIUM 2.9 mg/dL (1.8-2.4); PHOSPHOROUS 4.3 mg/dL (2.5-4.9)
[2023-12-27 04:47] LABS: CREATININE 2.3 mg/dL (0.6-1.3)
[2023-12-27 04:49] LABS: DIFFERENTIAL COMMENT 1; WHITE BLOOD COUNT (AUTO) 36.3 K/uL (3.8-11.8)
[2023-12-27 05:49] LABS: BAND % (MANUAL) 2 % (0-10)
[2023-12-27 05:50] LABS: LYMPHOCYTES % (MANUAL) 15 % (20-40); MONOCYTES % (MANUAL) 3 % (2-10); NEUTROPHILS % (MANUAL) 80 % (42-75)
[2023-12-27 05:51] LABS: PLATELET ESTIMATE ADEQUATE
[2023-12-27] MEDS: BLOOD SUGAR DIAGNOSTIC 1 EACH STRIP VI SCH (07:13)
[2023-12-27] MEDS ORDERED: VECURONIUM BROMIDE 50 MG in IV NORMAL SALINE 50 ML IV PRN ×2 (08:00→09:00)
[2023-12-27] MEDS: methylPREDNISolone SOD SUCC 40 MG/ML VIAL IV SCH (08:13)
[2023-12-27] MEDS: PANTOPRAZOLE SODIUM 40 MG VIAL IV SCH (08:13)
[2023-12-27] MEDS: PROPOFOL 100 ML IV PRN (08:48)
[2023-12-27 08:59] LABS: CREATININE 2.7 mg/dL (0.6-1.3); MAGNESIUM 3.1 mg/dL (1.8-2.4); POTASSIUM 4.4 mmol/L (3.5-5.1)
[2023-12-27] MEDS ORDERED: ENOXAPARIN SODIUM 40 MG/0.4 ML DISP.SYRIN SQ SCH (09:00)
[2023-12-27] MEDS: VECURONIUM BROMIDE 50 MG in IV NORMAL SALINE 50 ML IV PRN (09:23)
[2023-12-27] MEDS ORDERED: FUROSEMIDE 40 MG/4 ML VIAL IV ONE (09:30)
[2023-12-27 09:42] LABS: ABG BASE EXCESS -24.2 mmol/L (-2.0-2.0); ABG HCO3 7.3 mmol/L (22.0-26.0); ABG PCO2 34.8 mmHg (35.0-48.0); ABG PH 6.938 (7.340-7.440); ABG PO2 79.6 mmHg (75.0-100.0); ABG SITE RIGHT RADIAL; ABG TOTAL HEMOGLOBIN 12.6 G/dL (12.0-16.0); AaDO2 86.4 mmHg; COHb 0.2 % (0.0-3.9); MetHb 0.2 % (0.0-1.5); O2Hb 86.9 % (94.0-97.0); VT, ABG 450 mL
[2023-12-27 09:42] LABS: ABG BASE EXCESS -22.8 mmol/L (-2.0-2.0); ABG HCO3 7.9 mmol/L (22.0-26.0); ABG PH 6.982 (7.340-7.440); ABG PO2 76.4 mmHg (75.0-100.0); ABG SITE RIGHT RADIAL; ABG TOTAL HEMOGLOBIN 12.4 G/dL (12.0-16.0); AaDO2 86.5 mmHg; COHb 0.3 % (0.0-3.9); MetHb 0.2 % (0.0-1.5); O2Hb 86.8 % (94.0-97.0); VT, ABG 500 mL
[2023-12-27 09:42] LABS: ABG BASE EXCESS -6.9 mmol/L (-2.0-2.0); ABG HCO3 18.1 mmol/L (22.0-26.0); ABG PCO2 34.4 mmHg (35.0-48.0); ABG PH 7.338 (7.340-7.440); ABG PO2 42.4 mmHg (75.0-100.0); ABG SITE ALINE; ABG TOTAL HEMOGLOBIN 12.6 G/dL (12.0-16.0); AaDO2 75.6 mmHg; COHb 0.3 % (0.0-3.9); MetHb 0.3 % (0.0-1.5); O2Hb 72.7 % (94.0-97.0); VT, ABG 500 mL
[2023-12-27 09:54] LABS: ABG BASE EXCESS -23.2 mmol/L (-2.0-2.0); ABG PH 6.999 (7.340-7.440); ABG PO2 81.4 mmHg (75.0-100.0); ABG SITE LEFT RADIAL; ABG TOTAL HEMOGLOBIN 12.9 G/dL (12.0-16.0); AaDO2 89.2 mmHg; COHb 0.3 % (0.0-3.9); MetHb 0.4 % (0.0-1.5); O2Hb 89.5 % (94.0-97.0); VT, ABG 500 mL
[2023-12-27] MEDS: NORMAL SALINE IV ONE (10:34)
[2023-12-27] MEDS: FUROSEMIDE IV ONE (10:34)
[2023-12-27] MEDS: NORMAL SALINE IV SCH ×4 (10:34→17:23)
[2023-12-27] MEDS: CALCIUM GLUCONATE IV SCH (10:34)
[2023-12-27] MEDS: METOLAZONE 2.5 MG TABLET PO ONE (10:35)
[2023-12-27] MEDS: GLUCAGON HUMAN RECOMBINANT IV SCH ×3 (10:36→17:23)
[2023-12-27] MEDS ORDERED: HEPARIN SODIUM,PORCINE 5,000 UNITS/ML VIAL SQ SCH (10:39)
[2023-12-27 11:30] LABS: CALCIUM 7.2 mg/dL (8.5-10.1); CREATININE 2.7 mg/dL (0.6-1.3); POTASSIUM 4.5 mmol/L (3.5-5.1)
[2023-12-27] MEDS: PHENYLEPHRINE IV 100 MG in IV NORMAL SALINE 240 ML IV PRN (11:53)
[2023-12-27] MEDS: IPRATROPIUM BROMIDE 0.5 MG/2.5 ML NEBU NEB SCH (13:38)
[2023-12-27] MEDS: LEVALBUTEROL HCL NEB 0.63 MG/3 ML NEBU NEB SCH (13:38)
[2023-12-27] MEDS: PIPERACILLIN/TAZO 2.25 G in IV DEXTROSE 5% 50 ML IV SCH (14:02)
[2023-12-27] MEDS ORDERED: NORMAL SALINE IV SCH ×2 (14:30→15:00)
[2023-12-27] MEDS ORDERED: GLUCAGON HUMAN RECOMBINANT IV SCH ×2 (14:30→15:00)
[2023-12-27 15:43] LABS: CALCIUM 7.2 mg/dL (8.5-10.1); CREATININE 2.9 mg/dL (0.6-1.3); POTASSIUM 4.8 mmol/L (3.5-5.1)
[2023-12-27 16:10] LABS: LACTIC ACID 8.3 mmol/L (0.4-2.0)
[2023-12-27] MEDS ORDERED: VASOPRESSIN 20 UNIT in IV NORMAL SALINE 40 ML IV PRN (16:45)
[2023-12-27 18:20] LABS: POTASSIUM 5.1 mmol/L (3.5-5.1)
[2023-12-27 18:23] LABS: CALCIUM 5.8 mg/dL (8.5-10.1); CREATININE 3.2 mg/dL (0.6-1.3)
[2023-12-27] MEDS: HEPARIN SODIUM,PORCINE 5,000 UNITS/ML VIAL SQ SCH (20:24)
[2023-12-28] VITALS (78 sets, daily range): BP systolic 66–139; BP diastolic 0–72; TEMP 96.2–102.8; O2SAT 51–78
[2023-12-28 04:55] LABS: BASOPHILS # (AUTO) 0.1 K/UL (0.0-0.2); BASOPHILS % (AUTO) 0.3 % (0.0-2.0); EOSINOPHILS % (AUTO) 0.1 % (0.0-7.0); HEMATOCRIT 33.3 % (31.2-41.9); HEMOGLOBIN 13.6 g/dL (10.9-14.3); LYMPHOCYTES # (AUTO) 2.3 K/uL (0.8-4.8); LYMPHOCYTES % (AUTO) 7.9 % (20.5-51.5); MEAN CORPUSCULAR HEMOGLOBIN 35.9 uug (24.7-32.8); MEAN CORPUSCULAR HGB CONC 41 g/dL (32.3-35.6); MEAN CORPUSCULAR VOLUME 88.1 fL (75.5-95.3); MONOCYTES # (AUTO) 1.3 K/uL (0.1-1.30); MONOCYTES % (AUTO) 4.4 % (0.0-11.0); NEUTROPHILS # (AUTO) 25.8 K/uL (1.8-8.9); NEUTROPHILS % (AUTO) 87.3 % (38.5-71.5); PLATELET COUNT (AUTO) 354 K/uL (179-408); RED BLOOD CELL COUNT(AUTO) 3.78 MIL/uL (3.63-4.92); RED CELL DISTRIBUTION WIDTH 12.5 % (12.3-17.7); WHITE BLOOD COUNT (AUTO) 29.6 K/uL (3.8-11.8)
[2023-12-28 05:20] LABS: CARBON DIOXIDE 24 mmol/L (21-32); CHLORIDE 95 mmol/L (98-107); GLUCOSE 293 mg/dL (74-106); MAGNESIUM 2.8 mg/dL (1.8-2.4); PHOSPHOROUS 4.9 mg/dL (2.5-4.9); POTASSIUM 5.9 mmol/L (3.5-5.1); SODIUM SERUM 133 mmol/L (136-145); UREA NITROGEN, BLOOD 42 mg/dL (7-18)
[2023-12-28] MEDS: VASOPRESSIN 40 UNIT in IV NORMAL SALINE 40 ML IV PRN (05:25)
[2023-12-28 05:26] LABS: DIFFERENTIAL COMMENT 1
[2023-12-28 05:31] LABS: CREATININE 4.1 mg/dL (0.6-1.3)
[2023-12-28 05:41] LABS: CALCIUM < 5.0 mg/dL (8.5-10.1)
[2023-12-28 06:09] LABS: ABG HCO3 24.1 mmol/L (22.0-26.0); ABG PH 7.283 (7.340-7.440); ABG SITE ALINE; COHb 0.3 % (0.0-3.9); MetHb 0.4 % (0.0-1.5); O2Hb 68.3 % (94.0-97.0); VT, ABG 480 mL
[2023-12-28] MEDS: ACETAMINOPHEN 325 MG TABLET PO PRN (08:16)
[2023-12-28] MEDS: DEXTROSE 5% IV ONE ×2 (08:37→09:37)
[2023-12-28] MEDS: CALCIUM GLUCONATE IV ONE ×2 (08:37→09:37)
[2023-12-28 14:08] LABS: HEPATITIS B SURFACE AB, QUAL Non Reactive (.); HEPATITIS B SURFACE AG Negative (Negative)
[2023-12-28] MEDS: SODIUM BICARBONATE IV PRN (17:53)
[2023-12-28] MEDS: DEXTROSE IV PRN (17:53)
[2023-12-28] MEDS: BLOOD SUGAR DIAGNOSTIC 1 EACH STRIP VI SCH (18:07)
[2023-12-28] MEDS: INSULIN REGULAR, HUMAN 100 UNIT in IV NORMAL SALINE 99 ML IV PRN (18:13)
[2023-12-29] VITALS (68 sets, daily range): BP systolic 71–140; BP diastolic 41–64; TEMP 97–99.6; O2SAT 72–85
[2023-12-29] MEDS ORDERED: INSULIN REGULAR, HUMAN 300 UNIT/3 ML VIAL ONE (05:49)
[2023-12-29 06:15] LABS: BASOPHILS # (AUTO) 0.2 K/UL (0.0-0.2); BASOPHILS % (AUTO) 0.6 % (0.0-2.0); MONOCYTES # (AUTO) 0.8 K/uL (0.1-1.30)
[2023-12-29 06:18] LABS: ABG BASE EXCESS -1.5 mmol/L (-2.0-2.0); ABG HCO3 25.5 mmol/L (22.0-26.0); ABG PCO2 53.1 mmHg (35.0-48.0); ABG PH 7.299 (7.340-7.440); ABG PO2 45.1 mmHg (75.0-100.0); ABG SITE ALINE; ABG TOTAL HEMOGLOBIN 11.7 G/dL (12.0-16.0); AaDO2 75.8 mmHg; COHb 0.3 % (0.0-3.9); MetHb 0.3 % (0.0-1.5); O2Hb 75.3 % (94.0-97.0); VT, ABG 480 mL
[2023-12-29 06:19] LABS: EOSINOPHILS # (AUTO) 0.2 K/uL (0.0-0.7); EOSINOPHILS % (AUTO) 0.7 % (0.0-7.0); HEMATOCRIT 33.7 % (31.2-41.9); HEMOGLOBIN 13.4 g/dL (10.9-14.3); LYMPHOCYTES # (AUTO) 0.9 K/uL (0.8-4.8); LYMPHOCYTES % (AUTO) 2.8 % (20.5-51.5); MEAN CORPUSCULAR HEMOGLOBIN 35.6 uug (24.7-32.8); MEAN CORPUSCULAR HGB CONC 40 g/dL (32.3-35.6); MEAN CORPUSCULAR VOLUME 89.3 fL (75.5-95.3); MONOCYTES % (AUTO) 2.6 % (0.0-11.0); NEUTROPHILS # (AUTO) 29.1 K/uL (1.8-8.9); NEUTROPHILS % (AUTO) 93.3 % (38.5-71.5); PLATELET COUNT (AUTO) 258 K/uL (179-408); RED BLOOD CELL COUNT(AUTO) 3.77 MIL/uL (3.63-4.92); RED CELL DISTRIBUTION WIDTH 13.7 % (12.3-17.7)
[2023-12-29 06:21] LABS: DIFFERENTIAL COMMENT 1
[2023-12-29 06:22] LABS: WHITE BLOOD COUNT (AUTO) 31.2 K/uL (3.8-11.8)
[2023-12-29 06:25] LABS: MAGNESIUM 2.3 mg/dL (1.8-2.4); POTASSIUM 4.4 mmol/L (3.5-5.1)
[2023-12-29 06:33] LABS: CREATININE 3.7 mg/dL (0.6-1.3)
[2023-12-29 06:34] LABS: CALCIUM 7.1 mg/dL (8.5-10.1); PHOSPHOROUS 6.2 mg/dL (2.5-4.9)
[2023-12-29] MEDS ORDERED: INSULIN REGULAR, HUMAN 100 UNIT in IV NORMAL SALINE 99 ML IV SCH (09:00)
[2023-12-29] MEDS: DEXTROSE 50% 50 ML DISP.SYRIN IV ONE (09:51)
[2023-12-29] MEDS ORDERED: CALCIUM GLUCONATE IV SCH (10:00)
[2023-12-29] MEDS ORDERED: NORMAL SALINE IV SCH (10:00)
[2023-12-29] MEDS ORDERED: INSULIN REGULAR, HUMAN 100 UNIT in IV NORMAL SALINE 99 ML IV PRN ×2 (10:00→11:00)
[2023-12-29] MEDS ORDERED: DEXTROSE 25% 10 ML DISP.SYRIN IV SCH (10:45)
[2023-12-29] MEDS: DEXTROSE 50% 50 ML DISP.SYRIN IV PRN ×2 (11:05→12:39)
[2023-12-29 11:07] LABS: ADENOVIRUS Not Detected (Not Detected); CORONAVIRUS 229E Not Detected (Not Detected); CORONAVIRUS HKU1 Not Detected (Not Detected); CORONAVIRUS NL63 Not Detected (Not Detected); CORONAVIRUS OC43 Not Detected (Not Detected); NP BORDETELLA PERTUSIS Not Detected (Not Detected); NP CHLAMYDOPHILA PNEUMONIAE Not Detected (Not Detected); NP HUMAN METAPNEUMOVIRUS Not Detected (Not Detected); NP HUMAN RHINO/ENTERO VIRUS Not Detected (Not Detected); NP INFLUENZA A Not Detected (Not Detected); NP INFLUENZA A/H1 Not Detected (Not Detected); NP INFLUENZA A/H1-2009 Not Detected (Not Detected); NP INFLUENZA A/H3 Not Detected (Not Detected); NP INFLUENZA B Not Detected (Not Detected); NP MYCOPLASMA PNEUMONIAE Not Detected (Not Detected); NP PARAINFLUENZA 1 Not Detected (Not Detected); NP PARAINFLUENZA 2 Not Detected (Not Detected); NP PARAINFLUENZA 3 Not Detected (Not Detected); NP PARAINFLUENZA 4 Not Detected (Not Detected); NP RESPIRATORY SYNCYTIAL VIRUS Not Detected (Not Detected)
[2023-12-29] MEDS ORDERED: DEXTROSE 50% 50 ML DISP.SYRIN IV PRN (11:30)
[2023-12-29] MEDS: INSULIN REGULAR, HUMAN 100 UNIT in IV NORMAL SALINE 99 ML IV PRN ×2 (12:44→19:39)
[2023-12-29 12:47] LABS: BAND % (MANUAL) 4 % (0-10); LYMPHOCYTES % (MANUAL) 5 % (20-40); MONOCYTES % (MANUAL) 1 % (2-10); NEUTROPHILS % (MANUAL) 90 % (42-75); PLATELET ESTIMATE ADEQUATE
[2023-12-29 12:48] LABS: ANISOCYTOSIS 1+; HYPOCHROMASIA 1+
[2023-12-29] MEDS: CALCIUM GLUCONATE IV SCH (15:54)
[2023-12-29] MEDS: NORMAL SALINE IV SCH (15:54)
[2023-12-29] MEDS: ACETYLCYSTEINE 20% 800 MG/4 ML VIAL NEB SCH (21:51)
[2023-12-30] VITALS (95 sets, daily range): BP systolic 52–103; BP diastolic 26–56; TEMP 96.7–101; O2SAT 22–78
[2023-12-30 05:01] LABS: BASOPHILS # (AUTO) 0.2 K/UL (0.0-0.2); LYMPHOCYTES # (AUTO) 2.5 K/uL (0.8-4.8)
[2023-12-30 05:03] LABS: BASOPHILS % (AUTO) 0.4 % (0.0-2.0); HEMATOCRIT 32.9 % (31.2-41.9); HEMOGLOBIN 11.7 g/dL (10.9-14.3); LYMPHOCYTES % (AUTO) 6.9 % (20.5-51.5); MEAN CORPUSCULAR HEMOGLOBIN 31.2 uug (24.7-32.8); MEAN CORPUSCULAR HGB CONC 35 g/dL (32.3-35.6); MEAN CORPUSCULAR VOLUME 88.1 fL (75.5-95.3); MONOCYTES # (AUTO) 0.8 K/uL (0.1-1.30); MONOCYTES % (AUTO) 2.1 % (0.0-11.0); NEUTROPHILS # (AUTO) 32.8 K/uL (1.8-8.9); NEUTROPHILS % (AUTO) 90.6 % (38.5-71.5); PLATELET COUNT (AUTO) 270 K/uL (179-408); RED BLOOD CELL COUNT(AUTO) 3.74 MIL/uL (3.63-4.92); RED CELL DISTRIBUTION WIDTH 12.4 % (12.3-17.7)
[2023-12-30 05:29] LABS: BILIRUBIN,TOTAL 1.2 mg/dL (0.2-1.0); CALCIUM 9.7 mg/dL (8.5-10.1); CREATININE 3.7 mg/dL (0.6-1.3); MAGNESIUM 2.1 mg/dL (1.8-2.4); PHOSPHOROUS 5.1 mg/dL (2.5-4.9); POTASSIUM 4.5 mmol/L (3.5-5.1); TOTAL PROTEIN, SERUM 5.3 g/dL (6.4-8.2)
[2023-12-30 05:36] LABS: DIFFERENTIAL COMMENT 1; WHITE BLOOD COUNT (AUTO) 36.3 K/uL (3.8-11.8)
[2023-12-30 05:37] LABS: ALBUMIN 1.5 g/dL (3.4-5.0)
[2023-12-30 06:14] LABS: BAND % (MANUAL) 6 % (0-10); LYMPHOCYTES % (MANUAL) 4 % (20-40)
[2023-12-30 06:15] LABS: ANISOCYTOSIS 1+; MONOCYTES % (MANUAL) 2 % (2-10); NEUTROPHILS % (MANUAL) 88 % (42-75); PLATELET ESTIMATE ADEQUATE
[2023-12-30 06:22] LABS: ABG BASE EXCESS -7.6 mmol/L (-2.0-2.0); ABG HCO3 20.5 mmol/L (22.0-26.0); ABG PCO2 53.3 mmHg (35.0-48.0); ABG PH 7.203 (7.340-7.440); ABG SITE ALINE; ABG TOTAL HEMOGLOBIN 11.3 G/dL (12.0-16.0); AaDO2 36.8 mmHg; COHb 0.3 % (0.0-3.9); MetHb 1.7 % (0.0-1.5); O2Hb 32.2 % (94.0-97.0); VT, ABG 480 mL
[2023-12-30] MEDS ORDERED: HEPARIN/D5W DRIP 500 ML IV PRN (08:45)
[2023-12-30] MEDS ORDERED: HEPARIN SODIUM,PORCINE 5,000 UNITS/ML VIAL IV ONE (11:15)
[2023-12-30] MEDS: INSULIN REGULAR, HUMAN 100 UNIT in IV NORMAL SALINE 99 ML IV PRN (14:56)
[2023-12-30] MEDS: DEXTROSE 50% 50 ML DISP.SYRIN IV PRN (15:50)
[2023-12-30 15:53] LABS: CALCIUM 8.7 mg/dL (8.5-10.1); CREATININE 2.3 mg/dL (0.6-1.3); MAGNESIUM 1.8 mg/dL (1.8-2.4); PHOSPHOROUS 5.1 mg/dL (2.5-4.9); POTASSIUM 3.7 mmol/L (3.5-5.1)
[2023-12-30 16:21] LABS: LACTIC ACID 6.8 mmol/L (0.4-2.0)
[2023-12-30] MEDS: MINERAL OIL/PETROLAT OPHT OINT 3.5 GM TUBE EACHEYE SCH (19:54)
[2023-12-31] VITALS (88 sets, daily range): BP systolic 51–91; BP diastolic 27–55; TEMP 96.8–98.2; O2SAT 7–83
[2023-12-31 07:22] LABS: ABG BASE EXCESS -13.7 mmol/L (-2.0-2.0); ABG HCO3 18.5 mmol/L (22.0-26.0); ABG PCO2 82.8 mmHg (35.0-48.0); ABG PH 6.966 (7.340-7.440); ABG PO2 41.8 mmHg (75.0-100.0); ABG SITE ALINE; ABG TOTAL HEMOGLOBIN 10.1 G/dL (12.0-16.0); AaDO2 50.1 mmHg; COHb 0.3 % (0.0-3.9); MetHb 0.2 % (0.0-1.5); O2Hb 49.2 % (94.0-97.0); VT, ABG 480 mL
[2023-12-31 08:15] LABS: BASOPHILS # (AUTO) 0.3 K/UL (0.0-0.2); BASOPHILS % (AUTO) 0.7 % (0.0-2.0); HEMOGLOBIN 10.4 g/dL (10.9-14.3)
[2023-12-31 08:18] LABS: EOSINOPHILS # (AUTO) 0.5 K/uL (0.0-0.7); EOSINOPHILS % (AUTO) 1.1 % (0.0-7.0); LYMPHOCYTES # (AUTO) 3.7 K/uL (0.8-4.8); LYMPHOCYTES % (AUTO) 8.4 % (20.5-51.5); MEAN CORPUSCULAR HEMOGLOBIN 32.5 uug (24.7-32.8); MEAN CORPUSCULAR HGB CONC 36 g/dL (32.3-35.6); MEAN CORPUSCULAR VOLUME 90.9 fL (75.5-95.3); MONOCYTES # (AUTO) 0.8 K/uL (0.1-1.30); MONOCYTES % (AUTO) 1.9 % (0.0-11.0); NEUTROPHILS # (AUTO) 38.8 K/uL (1.8-8.9); NEUTROPHILS % (AUTO) 87.9 % (38.5-71.5); PLATELET COUNT (AUTO) 144 K/uL (179-408); RED BLOOD CELL COUNT(AUTO) 3.19 MIL/uL (3.63-4.92); RED CELL DISTRIBUTION WIDTH 12.9 % (12.3-17.7)
[2023-12-31 08:22] LABS: CALCIUM 8.7 mg/dL (8.5-10.1); CREATININE 3.7 mg/dL (0.6-1.3); POTASSIUM 5.3 mmol/L (3.5-5.1)
[2023-12-31 08:24] LABS: DIFFERENTIAL COMMENT 1
[2023-12-31 08:25] LABS: WHITE BLOOD COUNT (AUTO) 44.2 K/uL (3.8-11.8)
[2023-12-31 08:53] LABS: THYROID STIMULATING HORMONE 2.346 mIU/mL (0.358-3.740)
[2023-12-31] MEDS: INSULIN REGULAR, HUMAN 100 UNIT in IV NORMAL SALINE 99 ML IV PRN (13:15)
[2023-12-31] MEDS: SODIUM BICARBONATE IV PRN (13:22)
[2023-12-31] MEDS: DEXTROSE IV PRN (13:22)
[2023-12-31] MEDS: NORMAL SALINE IV ONE (15:04)
[2023-12-31] MEDS: CALCIUM CHLORIDE IV ONE (15:04)
[2023-12-31] MEDS: DEXTROSE 5% IV ONE (15:56)
[2023-12-31] MEDS: METHYLENE BLUE IV ONE (15:56)
[2023-12-31 16:02] LABS: BAND % (MANUAL) 7 % (0-10); LYMPHOCYTES % (MANUAL) 9 % (20-40); MONOCYTES % (MANUAL) 2 % (2-10); NEUTROPHILS % (MANUAL) 82 % (42-75)
[2023-12-31 16:03] LABS: ANISOCYTOSIS 1+; PLATELET ESTIMATE DECREASED
[2023-12-31] MEDS: PREMIXED IV SCH (16:59)
[2023-12-31] MEDS: CALCIUM CHLORIDE IV SCH (16:59)
[2024-01-01] VITALS: BP 71/36
[2024-01-01] MEDS ORDERED: ETOMIDATE 20 MG/10 ML VIAL ONE
[2024-01-01] MEDS ORDERED: DEXTROSE 50% 50 ML DISP.SYRIN ONE (00:02)
[2024-01-01 00:15] VITALS: BP 51/35
== END 2024-01-01 00:30 | DRG 817 ==
LOC: ER 20:42 → TELE3 12-26 13:56 → CCU 12-26 14:55
PROVIDERS: ADMIT Nurse Practitioner Family; ATTEND Nurse Practitioner Family
PROC: B548ZZA Ultrasonography of Superior Vena Cava, Guidance (ICD-10-PCS; principal; 2023-12-26)
PROC: 02HV33Z Insertion of Infusion Device into Superior Vena Cava, Percutaneous Approach (ICD-10-PCS; principal; 2023-12-26)
PROC: 03H533Z Insertion of Infusion Device into Right Axillary Artery, Percutaneous Approach (ICD-10-PCS; principal; 2023-12-26)
PROC: 0BH17EZ Insertion of Endotracheal Airway into Trachea, Via Natural or Artificial Opening (ICD-10-PCS; principal; 2023-12-26)
PROC: 5A1955Z Respiratory Ventilation, Greater than 96 Consecutive Hours (ICD-10-PCS; principal; 2023-12-26)
PROC: 5A1D70Z Performance of Urinary Filtration, Intermittent, Less than 6 Hours Per Day (ICD-10-PCS; 2023-12-29)
DX: T46.1X2A Poisoning by calcium-channel blockers, intentional self-harm, initial encounter (principal); R65.21 Severe sepsis with septic shock; J80 Acute respiratory distress syndrome; N17.0 Acute kidney failure with tubular necrosis; K72.00 Acute and subacute hepatic failure without coma; J69.0 Pneumonitis due to inhalation of food and vomit; Z66 Do not resuscitate; A41.9 Sepsis, unspecified organism; G92.8 Other toxic encephalopathy; J70.2 Acute drug-induced interstitial lung disorders; E87.1 Hypo-osmolality and hyponatremia; J45.909 Unspecified asthma, uncomplicated; F32.A Depression, unspecified; F41.9 Anxiety disorder, unspecified; E87.5 Hyperkalemia; E83.51 Hypocalcemia; E87.29 Other acidosis; M89.8X9 Other specified disorders of bone, unspecified site; Z68.31 Body mass index [BMI] 31.0-31.9, adult; I10 Essential (primary) hypertension; E66.9 Obesity, unspecified; G43.909 Migraine, unspecified, not intractable, without status migrainosus; Z98.890 Other specified postprocedural states; K85.90 Acute pancreatitis without necrosis or infection, unspecified; R73.9 Hyperglycemia, unspecified; E87.4 Mixed disorder of acid-base balance
CPT/HCPCS: 36415; 36600; 70030-TC; 71045; 74018; 82803; 83605; 83690; 83735; 84100; 84443; 84478; 84484; 85025; 85610; 85730; 86140; 86706; 87040; 87340; 90937; 93005; 93307; 94003; 94640; 94664; 94760; A4606; A4663; C1769; C9113; G0378; G0480; J0330; J0610; J1200; J1610; J1644; J1650; J1815; J1940; J2405; J2543; J2765; J2919; J3475; J3480; J3490; J3590; J7040; J7042; J7614